=== PATIENT | female | born 1985 | race Two or more races ===

== ENCOUNTER 2017-03-03 13:34 | Emergency (ER) | payer OTHER ==
[2017-03-03 13:41] VITALS: BP 154/86; PULSE 100; TEMP 98.3; BMI 32.2
[2017-03-03] MEDS ORDERED: ALBUTEROL SO4 2.5/IPRATROPIUM 0.5 INH SOL 3 ML VIAL.NEB. NEB ONE ×2 (13:41→15:05)
[2017-03-03] MEDS ORDERED: DEXAMETHASONE LIQUID 0.5 MG/5 ML 240 ML BULK BOTTLE PO ONE (14:29)
[2017-03-03] MEDS ORDERED: ALBUTEROL SO4 0.083% IH SOL 2.5 MG/3 ML VIAL.NEB. NEB ONE ×2 (14:30→14:31)
[2017-03-03] MEDS ORDERED: DEXAMETHASONE SOD PHOSPHATE 10 MG/1 ML VIAL ONE (14:31)
--- NOTE | 2017-03-03 15:00 | PDOC ---
History of Present Illness - History of Present Illness Initial Comments: 03/03/17 15:01 The patient is a 32 year old female, scottish speaking, with a significant past medical history of asthma, who presents to the emergency department with asthma exacerbation today after cooking a jalapeno pepper at noon today. She reports feeling well this morning until developing her shortness of breath at noon after cooking, reports using her inhaler numerous times, and becoming very shaky. She states she began coughing so hard she vomited a little. The patient states she received an albuterol pump and prednisone from her pcp a few days ago for similar symptoms, which were resolving, and admits to taking her prednisone this morning. She reports she does not have a nebulizer machine at home. She states she keeps the air conditioner on at home because the heat also exacerbates her asthma. She denies any other symptoms at this time. She denies chest pain, headache and dizziness. She denies fever, chills, nausea , diarrhea and constipation. She denies dysuria, frequency, urgency and hematuria. Allergies: NKDA Past surgical history: x4 <Meena Webber - Last Filed: 03/03/17 15:58> <Cady Robison - Last Filed: 03/03/17 16:13> - General Chief Complaint: Asthma Stated Complaint: SOB Time Seen by Provider: 03/03/17 13:43 Past History <Meena Webber - Last Filed: 03/03/17 15:58> - Past Medical History Asthma: Yes Cancer: No Cardiac Disorders: No Diabetes: No HTN: No Seizures: No Thyroid Disease: No - Psycho/Social/Smoking Cessation Hx Anxiety: No Suicidal Ideation: No Smoking History: Never smoked Have you smoked in the past 12 months: No Information on smoking cessation initiated: No Hx Alcohol Use: No Drug/Substance Use Hx: No Substance Use Type: None Hx Substance Use Treatment: No <Cady Robison - Last Filed: 03/03/17 16:13> - Past Medical History Allergies/Adverse Reactions: Allergies Allergy/AdvReac Type Severity Reaction Status Date / Time No Known Allergies Allergy Verified 03/03/17 13:34 Home Medications: Ambulatory Orders Vitamins (Sjr) - 1 tab PO DAILY 03/03/15 Albuterol 0.083% Nebulizer June [Ventolin 0.083%] 1 neb NEB Q4H #30 vial Montelukast Na [Singulair -] 10 mg PO HS #30 tablet 03/03/17 Nebulizer/Compressor [Comp-Air Elite Comp Nebulizer] 1 each MC Q4H #1 each 03/03 Review of Systems - Review of Systems Able to Perform ROS?: Yes Constitutional: No: Symptoms Reported HEENTM: No: Symptoms Reported Respiratory: Yes: Cough, Shortness of Breath Cardiac (ROS): No: Symptoms Reported ABD/GI: No: Symptoms Reported : No: Symptoms Reported Musculoskeletal: No: Symptoms Reported Integumentary: No: Symptoms Reported Neurological: No: Symptoms reported Endocrine: No: Symptoms Reported Hematologic/Lymphatic: No: Symptoms Reported <Meena Webber - Last Filed: 03/03/17 15:58> *Physical Exam - Vital Signs Last Vital Signs Temp Pulse Resp BP Pulse Ox 98.3 F 100 H 20 154/86 100 03/03/17 13:35 03/03/17 13:35 03/03/17 13:35 03/03/17 13:35 03/03/17 13:35 - Physical Exam Comments: 03/03/17 15:03 GENERAL: Well developed, well nourished. Awake and alert. No acute distress. HEENT: Normocephalic, atraumatic. PERRLA, EOMI. No conjunctival pallor. Sclera are non- icteric. Moist mucous membranes. Oropharynx is clear. NECK: Supple. Full ROM. No JVD. Carotid pulses 2+ and symmetric, without bruits. No thyromegaly. No lymphadenopathy. CARDIOVASCULAR: Regular rate and rhythm. No murmurs, rubs, or gallops. Distal pulses are 2+ and symmetric. PULMONARY: (+) decreased breath sounds at left lower lobe. bilateral expiratory wheezes. ronchorous breath sounds, no rales. ABDOMINAL: Soft. Non-tender. Non-distended. No rebound or guarding. No organomegaly. Normoactive bowel sounds. MUSCULOSKELETAL Normal range of motion at all joints. No bony deformities or tenderness. No CVA tenderness. EXTREMITIES: No cyanosis. No clubbing. No edema. No calf tenderness. SKIN: Warm and dry. Normal capillary refill. No rashes. No jaundice. NEUROLOGICAL: Alert, awake, appropriate. Cranial nerves 2-12 intact. Normoreflexic in the upper and lower extremities. Normal speech. Toes are down-going bilaterally. Gait is normal without ataxia. PSYCHIATRIC: Cooperative. Good eye contact. Appropriate mood and affect. <Meena Webber - Last Filed: 03/03/17 15:58> - Vital Signs Last Vital Signs Temp Pulse Resp BP Pulse Ox 98.3 F 100 H 20 154/86 100 03/03/17 13:35 03/03/17 13:35 03/03/17 13:35 03/03/17 13:35 03/03/17 13:35 <Cady Robison - Last Filed: 03/03/17 16:13> ED Treatment Course - RADIOLOGY Radiograph Interpretation: 03/03/17 15:58 CXR was read by Dr. Mooney at 15:37 Impression: No acute pathology - Medications Given in the ED: ED Medications Discontinued Medications Generic Name Dose Route Start Last Admin Trade Name Freq PRN Reason Stop Dose Admin Albuterol Sulfate 1 amp 03/03/17 14:30 03/03/17 14:34 Ventolin 0.083% Nebulizer Soln - NEB 03/03/17 14:31 1 amp ONCE ONE Administration Albuterol/Ipratropium 1 amp 03/03/17 13:41 03/03/17 13:41 Duoneb - NEB 03/03/17 13:42 1 amp NOW ONE Administration Dexamethasone 10 mg 03/03/17 14:29 03/03/17 14:33 Decadron Liquid - PO 03/03/17 14:30 10 mg ONCE ONE Administration <Meena Webber - Last Filed: 03/03/17 15:58> - Medications Given in the ED: ED Medications Discontinued Medications Generic Name Dose Route Start Last Admin Trade Name Freq PRN Reason Stop Dose Admin Albuterol Sulfate 1 amp 03/03/17 14:30 03/03/17 14:34 Ventolin 0.083% Nebulizer Soln - NEB 03/03/17 14:31 1 amp ONCE ONE Administration Albuterol/Ipratropium 1 amp 03/03/17 13:41 03/03/17 13:41 Duoneb - NEB 03/03/17 13:42 1 amp NOW ONE Administration Dexamethasone 10 mg 03/03/17 14:29 03/03/17 14:33 Decadron Liquid - PO 03/03/17 14:30 10 mg ONCE ONE Administration <Cady Robison - Last Filed: 03/03/17 16:13> Medical Decision Making - Medical Decision Making 03/03/17 15:11 A portion of this note was documented by the scribe services under my direction. I reviewed the details of the note within reason, and agree with the documentation with the following case summary and management plan written by me. Patient is a 32-year-old female history of asthma recently treated by her PMD for same on prednisone 20 mg once a day for 5 days also on albuterol inhaler when necessary. Patient states today she was cooking some jalapeno peppers when she had an asthma exacerbation. Was using her pump without resolve. Came to emergency department shaking after several inhalations of albuterol. Received patient after Combivent treatment started in triage. Second albuterol treatment given. Decadron 10 g by mouth 1. After treatment patient started coughing states she feels like there is something in her throat. 03/03/17 16:09 Patient is nontoxic appearing, no respiratory distress, s/p neb, the patient is sating 98%on room air. Chest x-rays negative for acute cardiopulmonary disease. We'll DC patient home, continue albuterol pump every 4 hours as needed, will give prescription for nebulizer. [place]. Strict follow-up with PMD I discussed the physical exam findings, ancillary test results and final diagnoses with the patient. I answered all of the patient's questions. The patient was satisfied with the care received and felt comfortable with the discharge plan and treatment plan. The patient will call to arrange follow-up and will return to the Emergency Department with any new, persistent or worsening symptoms. <Cady Robison - Last Filed: 03/03/17 16:13> *DC/Admit/Observation/Transfer - Attestations Scribe Attestion: 03/03/17 15:06 Documentation prepared by Meena Webber, acting as medical claims manager for Emergency Dept, SALES PROMOTER, Cady Robison <Meena Webber - Last Filed: 03/03/17 15:58> - Discharge Dispostion Admit: No <Cady Robison - Last Filed: 03/03/17 16:13> Diagnosis at time of Disposition: Asthma exacerbation - Discharge Dispostion Disposition: HOME Condition at time of disposition: Good - Prescriptions Prescriptions: Nebulizer/Compressor [Comp-Air Elite Comp Nebulizer] 1 each MC Q4H #1 each Montelukast Na [Singulair -] 10 mg PO HS #30 tablet Albuterol 0.083% Nebulizer June [Ventolin 0.083%] 1 neb NEB Q4H #30 vial - Patient Instructions Printed Discharge Instructions: Asthma -- Adult Additional Instructions: Keep head of bed elevated 45 when sleeping Treatments every 4 hours as needed Cool air humidifier Frequent chest PT Followup in the primary care doctor's office in 2 days for evaluation. If any respiratory distress, increased cough, inability to drink, increased wheezing please return immediately to emergency department.
== END 2017-03-03 16:20 | disposition home or self-care (01) ==
LOC: JERFT 13:34
PROC: 3E0F7GC Introduction of Other Therapeutic Substance into Respiratory Tract, Via Natural or Artificial Opening (ICD-10-PCS; principal; 2017-03-03)
PROC: 3E0F7GC Introduction of Other Therapeutic Substance into Respiratory Tract, Via Natural or Artificial Opening (ICD-10-PCS; 2017-03-03)
DX: J45.901 Unspecified asthma with (acute) exacerbation (principal)
CPT/HCPCS: 71020-TC; 84703; 94640; 99281-25

== ENCOUNTER 2018-11-12 10:27 | Emergency (ER) | payer SELFPAY ==
[2018-11-12 10:35] VITALS: BMI 32.2
[2018-11-12 11:11] LABS: BASO % 1.1 % (0-2.0); EOS % 4.5 % (0-4.5); HEMATOCRIT 38.7 % (32.4-45.2); HEMOGLOBIN 13.4 GM/dL (10.7-15.3); LYMPH % 29.2 % (8-40); MCH 30.1 pg (25.7-33.7); MCHC 34.6 g/dl (32.0-36.0); MEAN CELL VOLUME 86.9 fl (80-96); MONO % 6.9 % (3.8-10.2); NEUT % 58.3 % (42.8-82.8); PLATELET COUNT 280 K/MM3 (134-434); RBC 4.45 M/mm3 (3.60-5.2); RDW 14.6 % (11.6-15.6); WHITE BLOOD COUNT 7.2 K/mm3 (4.0-10.0)
--- NOTE | 2018-11-12 11:51 | PDOC ---
History of Present Illness - General Chief Complaint: Palpitations Stated Complaint: PALPITATIONS Time Seen by Provider: 11/12/18 10:53 History Source: Patient Exam Limitations: No Limitations - History of Present Illness Initial Comments: 11/12/18 11:48 33-year-old female presents to ED with complaints of intermittent chest tightness to the lower midsternal area near the epigastric region associated with intermittent palpitations since last evening. Patient denies aggravating or alleviating factors. She also denies smoking history recent travel, exogenous estrogen usage, GI history or associated symptoms. Presenting Symptoms: Chest Pain Timing/Duration: reports: intermittent Severity/Quality: reports: mild, tightness Location: reports: substernal Chest Pain Radiation: reports: no radiation Activities at Onset: reports: none Prior Chest Pain/Cardiac Workup: reports: No prior chest pain Nitro Today/Relief: Yes: no nitro taken today Aspirin Received prior to arrival (Core Measure): Yes: no aspirin today Beta Bethany given by EMS (Core Measure): No Beta Bethany taken at Home (Core Measure): No Associated Symptoms: Yes: Chest Pain/pressure, Palpitations Past History - Travel Traveled outside of the country in the last 30 days: No Close contact w/someone who was outside of country & ill: No - Past Medical History Allergies/Adverse Reactions: Allergies Allergy/AdvReac Type Severity Reaction Status Date / Time No Known Allergies Allergy Verified 11/12/18 10:32 Home Medications: Ambulatory Orders Vitamins (Sjr) - 1 tab PO DAILY 03/03/15 Albuterol 0.083% Nebulizer June [Ventolin 0.083%] 1 neb NEB Q4H #30 vial Montelukast Na [Singulair -] 10 mg PO HS #30 tablet 03/03/17 Nebulizer and Compressor [Comp-Air Elite Comp Nebulizer] 1 each MC Q4H #1 each 03/03/17 Asthma: Yes Cancer: No Cardiac Disorders: No COPD: No Diabetes: No HTN: No Seizures: No Thyroid Disease: No - Suicide/Smoking/Psychosocial Hx Smoking History: Never smoked Have you smoked in the past 12 months: No Hx Alcohol Use: No Drug/Substance Use Hx: No Substance Use Type: None Hx Substance Use Treatment: No Patient Lives Alone: No Lives with/in: spouse/SO Review of Systems - Review of Systems Able to Perform ROS?: No Constitutional: No: Symptoms Reported HEENTM: No: Symptoms Reported Respiratory: No: Symptoms reported Cardiac (ROS): Yes: Chest Pain, Palpitations ABD/GI: No: Symptoms Reported : No: Symptoms Reported Musculoskeletal: No: Symptoms Reported Integumentary: No: Symptoms Reported Neurological: No: Symptoms reported Hematologic/Lymphatic: No: Symptoms Reported *Physical Exam - Vital Signs Last Vital Signs Temp Pulse Resp BP Pulse Ox 98.2 F 84 16 137/77 99 11/12/18 10:32 11/12/18 10:32 11/12/18 10:32 11/12/18 10:32 11/12/18 10:32 - Physical Exam General Appearance: Yes: Nourished, Appropriately Dressed. No: Apparent Distress HEENT: positive: EOMI, KAMRAN, TMs Normal, Pharynx Normal. negative: Pale Conjunctivae Neck: positive: Supple Respiratory/Chest: positive: Lungs Clear, Normal Breath Sounds. negative: Respiratory Distress, Accessory Muscle Use Cardiovascular: positive: Regular Rhythm, Regular Rate. negative: Murmur Gastrointestinal/Abdominal: positive: Soft. negative: Tenderness Extremity: positive: Normal Capillary Refill. negative: Pedal Edema Integumentary: positive: Normal Color, Warm, Moist Neurologic: positive: Normal Mood/Affect, Motor Strength 5/5 (ambulatory) Heart Score/ECG Review - ECG Intrepretation Rhythm: Regular Rhythm (Rate [address] elevation or depression.) Moderate Sedation - Procedure Monitoring Vital Signs: Procedure Monitoring Vital Signs Temperature 98.2 F 11/12/18 10:32 Pulse Rate 84 11/12/18 10:32 Respiratory Rate 16 11/12/18 10:32 Blood Pressure 137/77 11/12/18 10:32 O2 Sat by Pulse Oximetry (%) 99 11/12/18 10:32 ED Treatment Course - LABORATORY CBC & Chemistry Diagram: 11/12/18 10:56 11/12/18 10:54 - ADDITIONAL ORDERS Additional order review: Laboratory Results 11/12/18 10:54 Sodium 137 Potassium 3.8 Chloride 109 H Carbon Dioxide 23 Anion Gap 5 L BUN 12 Creatinine 0.9 Creat Clearance w eGFR > 60 Random Glucose 100 Calcium 9.1 Total Bilirubin 0.2 AST 25 ALT 56 Alkaline Phosphatase 130 H Creatine Kinase 187 Troponin I < 0.02 Total Protein 8.4 H Albumin 4.0 TSH 0.80 11/12/18 10:56 RBC 4.45 MCV 86.9 MCHC 34.6 RDW 14.6 MPV 8.0 Neutrophils % 58.3 D Lymphocytes % 29.2 D Monocytes % 6.9 D Eosinophils % 4.5 D Basophils % 1.1 D - RADIOLOGY Radiology Studies Ordered: Category Date Time Status CHEST PA & LAT [RAD] Stat Radiology 11/12/18 10:57 Completed Medical Decision Making - Medical Decision Making 11/12/18 11:02 CC: Intermittent lower substernal tightness w/ palpitations since yesterday. No associated symptoms or risk factors Exam: No acute changes. NSR 69 Plan: EKG labs and chest x-ray 11/12/18 11:55 Laboratory Tests 11/12/18 10:56 WBC 7.2 Hgb 13.4 Hct 38.7 D Absolute Neuts (auto) 4.2 11/12/18 12:54 Laboratory Tests 11/12/18 10:54 Sodium 137 Potassium 3.8 Chloride 109 H Carbon Dioxide 23 Anion Gap 5 L BUN 12 Creatinine 0.9 Random Glucose 100 Calcium 9.1 Total Bilirubin 0.2 AST 25 ALT 56 Alkaline Phosphatase 130 H Creatine Kinase 187 Troponin I < 0.02 Total Protein 8.4 H Albumin 4.0 TSH 0.80 11/12/18 12:55 Pt remains asymptomatic and will be given cardiology referral if s/s continue *DC/Admit/Observation/Transfer Diagnosis at time of Disposition: Musculoskeletal chest pain - Discharge Dispostion Disposition: HOME Condition at time of disposition: Good - Referrals Referrals: Wilmer Wasserman MD [Staff Physician] - - Patient Instructions Printed Discharge Instructions: DI for Atypical Chest Pain Additional Instructions: May take Motrin or Tylenol for discomfort. If symptoms continue or worsen please follow up with referred passport support manager. - Post Discharge Activity
[2018-11-12 12:14] LABS: ALK PHOS 130 U/L (45-117); ANION GAP 5 MMOL/L (8-16); BILIRUBIN,TOTAL 0.2 mg/dL (0.2-1); BLOOD UREA NITROGEN 12 mg/dL (7-18); CALCIUM 9.1 mg/dL (8.5-10.1); CHLORIDE 109 mmol/L (98-107); CO2 23 mmol/L (21-32); CREATININE 0.9 mg/dL (0.55-1.3); GLUCOSE,RANDOM 100 mg/dL (74-106); POTASSIUM 3.8 mmol/L (3.5-5.1); SGOT/AST 25 U/L (15-37); SGPT/ALT 56 U/L (13-61); SODIUM 137 mmol/L (136-145); TOT PROT 8.4 g/dl (6.4-8.2)
[2018-11-12 13:15] VITALS: BP 130/70; PULSE 80; TEMP 98.1
--- NOTE | 2018-11-13 09:52 | EKG ---
Test Reason : Blood Pressure : / mmHG Vent. Rate : 069 BPM Atrial Rate : 069 BPM P-R Int : 132 ms QRS Dur : 086 ms QT Int : 392 ms P-R-T Axes : 042 051 032 degrees QTc Int : 420 ms NORMAL SINUS RHYTHM NORMAL ECG NO PREVIOUS ECGS AVAILABLE Confirmed by JACINTA CRUZ MD ([id number]) on 11/13/2018 9:52:38 AM Referred By: Confirmed By:JACINTA CRUZ MD
== END 2018-11-12 13:00 | disposition home or self-care (01) ==
LOC: JER 10:27
DX: R07.89 Other chest pain (principal); J45.909 Unspecified asthma, uncomplicated
CPT/HCPCS: 36415; 71046-TC-FY; 80053; 82550; 82553; 84443; 84484; 85025; 93005; 93010; 99281-25

== ENCOUNTER 2019-06-06 15:04 | Emergency (ER) | payer OTHER ==
--- NOTE | 2019-06-06 15:16 | PDOC ---
Rapid Medical Evaluation Time Seen by Provider: 06/06/19 15:13 Medical Evaluation: Allergies Allergy/AdvReac Type Severity Reaction Status Date / Time No Known Allergies Allergy Verified 11/12/18 10:32 06/06/19 15:13 CC: CASTREJON, tongue numbness and increased forgetfulness x2 weeks PE: Slight right sided facial droop. Eyebrows WNL. No drift or slurred speech. Orders: labs, urine, CTH Pt will proceed to ER for further evaluation. Discharge Disposition - Diagnosis Headache - Referrals - Patient Instructions - Post Discharge Activity
[2019-06-06 15:19] VITALS: BP 142/88; PULSE 70; TEMP 98; BMI 33.6
[2019-06-06 15:56] LABS: BASO % 0.2 % (0-2.0); EOS % 3.7 % (0-4.5); HEMATOCRIT 38.1 % (32.4-45.2); HEMOGLOBIN 12.6 GM/dL (10.7-15.3); LYMPH % 30.3 % (8-40); MEAN PLT VOLUME 8.2 fl (7.5-11.1); MONO % 5.9 % (3.8-10.2); NEUT % 59.9 % (42.8-82.8); PLATELET COUNT 274 K/MM3 (134-434); RBC 4.33 M/mm3 (3.60-5.2); RDW 14.5 % (11.6-15.6); WHITE BLOOD COUNT 7.3 K/mm3 (4.0-10.0)
[2019-06-06 16:24] LABS: HYALINE CASTS 0 /lpf (0-8); PH,URINE 5.5 (5.0-8.0); URINE APPEARANCE CLEAR; URINE BACTERIA 19.1 /hpf (NEGATIVE); URINE BILIRUBIN NEGATIVE (NEGATIVE); URINE COLOR YELLOW; URINE GLUCOSE (UA) NEGATIVE (NEGATIVE); URINE KETONE NEGATIVE (NEGATIVE); URINE LEUK ESTERASE NEGATIVE (NEGATIVE); URINE NITRITE NEGATIVE (NEGATIVE); URINE PROTEIN NEGATIVE (NEGATIVE); URINE RBC 7 /hpf (0-4); URINE WBC 1 /hpf (0-5)
[2019-06-06 16:26] LABS: ALBUMIN 3.9 g/dl (3.4-5.0); ALK PHOS 129 U/L (45-117); ANION GAP 8 MMOL/L (8-16); BILIRUBIN,TOTAL 0.2 mg/dL (0.2-1); CALCIUM 8.6 mg/dL (8.5-10.1); CHLORIDE 108 mmol/L (98-107); CO2 23 mmol/L (21-32); CREATININE 0.8 mg/dL (0.55-1.3); GLUCOSE,RANDOM 98 mg/dL (74-106); POTASSIUM 3.9 mmol/L (3.5-5.1); SGOT/AST 21 U/L (15-37); SGPT/ALT 57 U/L (13-61); SODIUM 138 mmol/L (136-145); TOT PROT 7.4 g/dl (6.4-8.2)
[2019-06-06 16:33] LABS: INR 1.04 (0.83-1.09); PROTHROMBIN TIME (PATIENT) 12.3 SEC (9.7-13.0)
--- NOTE | 2019-06-06 18:00 | PDOC ---
History of Present Illness - General Chief Complaint: Headache Stated Complaint: HEADACHE/ TONGUE NUMBNESS Time Seen by Provider: 06/06/19 15:13 History Source: Patient Exam Limitations: No Limitations - History of Present Illness Initial Comments: 06/06/19 17:58 34-year-old female presents to ED with intermittent sharp throbbing pain to the back of her head for the past 3 weeks also with intermittent forgetfulness of current events and states took Tylenol with no relief. Patient states no aggravating or alleviating factors. Patient denies any visual changes and intermittent dizziness without positional changes. Patient denies history of migraines, recent head injury, recent travel, recent illness. Timing/Duration: reports: other (intermittenly x 2 weeks) Severity: Yes: mild, moderate Associated Symptoms: reports: confusion. denies: nausea/vomiting, numbness in legs/feet, vision changes, weakness Past History - Travel Traveled outside of the country in the last 30 days: No Close contact w/someone who was outside of country & ill: No - Past Medical History Allergies/Adverse Reactions: Allergies Allergy/AdvReac Type Severity Reaction Status Date / Time No Known Allergies Allergy Verified 11/12/18 10:32 Home Medications: Ambulatory Orders Vitamins (Sjr) - 1 tab PO DAILY 03/03/15 Albuterol 0.083% Nebulizer June [Ventolin 0.083%] 1 neb NEB Q4H #30 vial Montelukast Na [Singulair -] 10 mg PO HS #30 tablet 03/03/17 Nebulizer and Compressor [Comp-Air Elite Comp Nebulizer] 1 each Q4H #1 each 03/03/17 Asthma: Yes Cancer: No Cardiac Disorders: No COPD: No Diabetes: No HTN: No Seizures: No Thyroid Disease: No - Psycho Social/Smoking Cessation Hx Smoking History: Never smoked Have you smoked in the past 12 months: No Information on smoking cessation initiated: No Hx Alcohol Use: No Drug/Substance Use Hx: No Substance Use Type: None Hx Substance Use Treatment: No Patient Lives Alone: No Lives with/in: spouse/SO Review of Systems - Review of Systems Able to Perform ROS?: No Is the patient limited Serbian proficient: No Constitutional: No: Symptoms Reported HEENTM: No: Symptoms Reported Respiratory: No: Symptoms reported Cardiac (ROS): No: Symptoms Reported ABD/GI: No: Symptoms Reported : No: Symptoms Reported Musculoskeletal: No: Symptoms Reported Integumentary: No: Symptoms Reported Neurological: Yes: Headache, Numbness (mild left face/tongue), Weakness, Dizziness Endocrine: No: Symptoms Reported Hematologic/Lymphatic: No: Symptoms Reported *Physical Exam - Vital Signs Last Vital Signs Temp Pulse Resp BP Pulse Ox 98 F 70 18 142/88 100 06/06/19 15:12 06/06/19 15:12 06/06/19 15:12 06/06/19 15:12 06/06/19 15:12 - Physical Exam General Appearance: Yes: Nourished, Appropriately Dressed. No: Apparent Distress HEENT: positive: EOMI, KAMRAN, TMs Normal, Pharynx Normal. negative: Pale Conjunctivae Neck: positive: Supple Respiratory/Chest: positive: Lungs Clear, Normal Breath Sounds. negative: Respiratory Distress, Accessory Muscle Use Cardiovascular: positive: Regular Rhythm, Regular Rate. negative: Murmur Gastrointestinal/Abdominal: positive: Soft. negative: Tenderness Musculoskeletal: negative: Vertebral Tenderness Extremity: positive: Normal Inspection Integumentary: positive: Normal Color, Warm, Moist Neurologic: positive: Normal Mood/Affect, Motor Strength 5/5, Facial Droop ( mild left ( eye/nasolabial fold). Decreases sensation with sharp touch to left face), Finger to Nose. negative: Confused, Disoriented ED Treatment Course - LABORATORY CBC & Chemistry Diagram: 06/06/19 15:42 06/06/19 15:42 - ADDITIONAL ORDERS Additional order review: Laboratory Results 06/06/19 06/06/19 06/06/19 15:42 15:42 15:42 PT with INR 12.30 INR 1.04 Sodium 138 Potassium 3.9 Chloride 108 H Carbon Dioxide 23 Anion Gap 8 BUN 14.0 Creatinine 0.8 Est GFR (CKD-EPI)AfAm 110.70 Est GFR (CKD-EPI)NonAf 95.52 Random Glucose 98 Calcium 8.6 Total Bilirubin 0.2 AST 21 ALT 57 Alkaline Phosphatase 129 H Creatine Kinase 101 Troponin I < 0.02 Total Protein 7.4 Albumin 3.9 Urine Color Yellow Urine Appearance Clear Urine pH 5.5 Ur Specific [place] 1.019 Urine Protein Negative Urine Glucose (UA) Negative Urine Ketones Negative Urine Blood Trace Urine Nitrite Negative Urine Bilirubin Negative Urine Urobilinogen 1.0 Ur Leukocyte Esterase Negative Urine WBC (Auto) 1 Urine RBC (Auto) 7 Urine Casts (Auto) 0 U Epithel Cells (Auto) 1.0 Urine Bacteria (Auto) 19.1 06/06/19 15:42 RBC 4.33 MCV 88.0 MCHC 33.0 RDW 14.5 MPV 8.2 Neutrophils % 59.9 Lymphocytes % 30.3 Monocytes % 5.9 Eosinophils % 3.7 Basophils % 0.2 Medical Decision Making - Medical Decision Making 06/06/19 18:07 Chief complaint: Occipital throbbing headache intermittently for the past month with periods of confusion. Patient now with left facial decreased sensation over the past week patient has no other complaints except for mild dizziness intermittently. No relief with Tylenol Mild left facial droop including the eye and nasal labial fold . House Brackmann grade 2 plan: Patient had labs and CT of the head ordered from [facility]. Patient consented for Carvalho's palsy. Patient will be given steroids since pt continues with headache. Medrol pack Discharge - Discharge Information Problems reviewed: Yes Clinical Impression/Diagnosis: Headache, Carvalho's palsy Condition: Good Disposition: HOME - Follow up/Referral Referrals: Darryl Eldridge MD [Staff Physician] - Markel Meeks DO [Staff Physician] - - Patient Discharge Instructions Patient Printed Discharge Instructions: DI for Carvalho's Palsy Additional Instructions: Take medication as prescribed and follow up with referred neurologist. - Post Discharge Activity
--- NOTE | 2019-06-07 10:05 | EKG ---
Test Reason : Blood Pressure : / mmHG Vent. Rate : 061 BPM Atrial Rate : 061 BPM P-R Int : 142 ms QRS Dur : 084 ms QT Int : 414 ms P-R-T Axes : 045 053 040 degrees QTc Int : 416 ms NORMAL SINUS RHYTHM NORMAL ECG WHEN COMPARED WITH ECG OF 12-NOV-2018 10:32, NO SIGNIFICANT CHANGE WAS FOUND Confirmed by Regulo Gregory MD ([id number]) on 06/07/2019 10:05:00 AM Referred By: Confirmed By:Regulo Gregory MD
== END 2019-06-06 19:11 | disposition home or self-care (01) ==
LOC: JER 15:04 → JERFT 15:04 → JER 19:11
DX: R51 Headache (principal); G51.0 Bell's palsy
CPT/HCPCS: 36415; 70450-TC; 80053; 81003; 82550; 84484; 85025; 85610; 87086; 93005; 93010; 99282-25